=== PATIENT | female | born 1950 ===

== ENCOUNTER 2021-10-06 05:40 | Day surgery (SDC) | payer OTHER | END 2021-10-06 15:30 | disposition home or self-care (01) | LOC: AMB-ENDOS 05:40 | PROVIDERS: ATTEND Surgery | DX: D12.0 Benign neoplasm of cecum (principal); E78.5 Hyperlipidemia, unspecified; Z88.8 Allergy status to other drugs, medicaments and biological substances; E03.9 Hypothyroidism, unspecified ==